=== PATIENT | female | born 1950 | race Caucasian/White ===

== ENCOUNTER 2017-07-30 07:02 | Inpatient (IN) | payer OTHER, MEDICAID ==
[~2017-07-30] VITALS: Ht 157.5 cm; Wt 75.0 kg
[2017-07-30] MEDS ORDERED: SERT-138 PO (07:31)
[2017-07-30] MEDS ORDERED: ATOR40TA75 PO (07:31)
[2017-07-30] MEDS ORDERED: EZET10TA PO (07:31)
[2017-07-30] MEDS ORDERED: RANI150T PO (07:31)
[2017-07-30] MEDS ORDERED: GABA-282 PO (07:31)
[2017-07-30] MEDS ORDERED: BISO5TAB5 PO (07:31)
[2017-07-30] MEDS ORDERED: ZYLO300T4 PO (07:31)
[2017-07-30] MEDS ORDERED: LISI-542 PO (07:31)
[2017-07-30] MEDS ORDERED: FURO20TA2 PO (07:31)
[2017-07-30] MEDS: NICOTINE 21MG/24HR 1 EA TRANSDERMAL TD SCH (09:00)
[2017-07-30] MEDS ORDERED: MAALOX 30 ML SUSP *UDC PO PRN (17:00)
[2017-07-30] MEDS ORDERED: hydrOXYzine 25 MG TAB PO PRN (17:00)
[2017-07-30] MEDS ORDERED: QUEtiapine FUMARATE 50 MG TAB PO PRN (17:00)
[2017-07-30] MEDS ORDERED: MOM 30ML SUSPENSION UDC PO PRN (17:00)
[2017-07-30] MEDS ORDERED: ACETAMINOPHEN TAB 650MG DOSE (2X325MG) PO PRN (17:00)
[2017-07-30] MEDS: ATORVASTATIN 20 MG TAB PO SCH (22:01)
[2017-07-30] MEDS: GABAPENTIN 300 MG CAP PO SCH (22:02)
[2017-07-30] MEDS: BISOPROLOL FUMARATE 5 MG TAB PO SCH (22:03)
[2017-07-30] MEDS: FAMOTIDINE 20 MG TAB PO SCH (22:04)
[2017-07-31 06:44] VITALS: BP 127/81
[2017-07-31] MEDS: NICOTINE 21MG/24HR 1 EA TRANSDERMAL TD SCH (09:00)
[2017-07-31] MEDS: FUROSEMIDE 20 MG TAB PO SCH (10:14)
[2017-07-31] MEDS: GABAPENTIN 300 MG CAP PO SCH ×2 (10:14→21:16)
[2017-07-31] MEDS: LISINOPRIL 5 MG TAB PO SCH (10:14)
[2017-07-31] MEDS: SERTRALINE 100 MG TAB PO SCH (10:14)
[2017-07-31] MEDS: EZETIMIBE 10 MG TAB (ZETIA) PO SCH (10:14)
[2017-07-31] MEDS: ALLOPURINOL 300 MG TAB PO SCH (10:15)
[2017-07-31] MEDS: FAMOTIDINE 20 MG TAB PO SCH ×2 (10:15→21:13)
[2017-07-31] MEDS: BISOPROLOL FUMARATE 5 MG TAB PO SCH ×2 (10:15→21:00)
[2017-07-31] MEDS ORDERED: ALBUTEROL 90 MCG/ACT 8GM HFA INHALER INH PRN (10:30)
--- NOTE | 2017-07-31 10:30 | HPEPDOC ---
[facility] Medical History & Physical Date of Admission Jul 30, 2017 History and Physical PCP: Dr Juan Jose Parikh ATTENDING: Dr. Mundo Jade HPI: 66yoF transferred from [facility] after apparently taking a handful of pills, then spitting them out, admitted to [facility] for unspecified depressive disorder, being medically examined today. No acute medical complaints today. Denies any fevers, chills, weakness, fatigue, RUSSELL, CP, SOB, cough, palpitations, abdominal pain, N/V/D or changes in bowel or bladder habits. PMHx: COPD Hypertension ELIZABETH. CPAP. Hyperlipidemia Degenerative disc disease/osteoarthritis Chronic neck pain/chronic low back pain/chronic pain Depression Anxiety Psoriasis Poor dentition Gout GERD PSHX: Cholecystectomy Tubal ligation Right toe amputation SOCHX: Resides in: [facility] Marital Status: Kids: One son Employment: Retired Tobacco use: One half pack per day ETOH: Denies Illicit Drugs: Denies IV Drug Use: Denies Tattoos done unprofessionally: Denies FAMHX: Mother: , ovarian cancer Father: , [place] Siblings: One brother with Lewy body dementia, one sister Alive, well. Children: One son Alive, history of heart disease. One child at . ROS: As noted in HPI, otherwise 11pt ROS of systems reviewed and remarkable only for postmenopausal. PE: GEN: 66yoF, appears stated age. Well-nourished, well developed. No acute distress. Alert and oriented x 3. Pleasant, interactive. HEENT: Normocephalic, atraumatic. Pupils are equal, round, and reactive to light. Extraocular movements are intact. No nystagmus appreciated. Sclera are nonicteric. Conjunctiva without injection. Nose midline. Nasal turbinates without bogginess. EACs both patent BL. TMs both visualized and grigsby with good cone of light, no bulging or erythema. No facial asymmetry. Moist mucous membranes. Dentition fair. Pharynx pink and moist, no cobblestoning. Neck supple , trachea midline. No lymphadenopathy or thyromegaly appreciated. CHEST: Regular rate and rhythm, +S1, +S2 LUNGS: Clear to auscultation bilaterally. No wheezes, rales, or rhonchi. Breathing appears symmetric and easy. Patient is speaking in full sentences. No accessory muscle use. ABD: Round, soft, non-tender, non-distended. +Bowel sounds throughout. No rebound or guarding. No costovertebral angle tenderness. EXT: Pulses 2+ bilaterally dorsalis pedis and radial. No lower extremity edema appreciated. SKIN: [place], dry, warm. Capillary refill <2sec. No rashes. NEURO: Alert and oriented x 3. Cranial nerves III-XII are intact. No focal deficits appreciated. EKG: pending. Labs [facility] WBC 4.4 Hgb 11.7 HCT 37.3 Plt 114 Na 141 K 4.5 Cl 106 CO2 28 BUN 24 SCr 1.40 Gluc 115 Ca 9.7 AST 27 ALT 19 AP 122 Alb 4.4 TSH 0.99 Toxicology unremarkable. A&P: 66yoF transferred from [facility] admitted to [facility] for unspecified depressive disorder 1. Psych. Plan per Psychiatry. Obtain baseline EKG to assure the safety of psychiatric medications as they can prolong the QT interval. 2. Nicotine dependence. Patch available. 3. Poor dentition. No acute issues. Encourage oral care. Chlorhexidine 3 times a day. Arrange dental provider at discharge 4. Follow up with PCP on discharge. 5. Hypertension. Continue Lasix 20 mg daily, lisinopril 5 mg by mouth daily with hold parameters, Zebeta 5 mg by mouth twice a day. 6. COPD. Continue albuterol as needed. 7. ELIZABETH. Continue CPAP with home settings. 8. Hyperlipidemia. Continue atorvastatin 40 mg by mouth daily. Continue Zetia 10 mg by mouth daily. 9. Chronic neck pain/low back pain/chronic pain. Continue gabapentin 600 mg by mouth twice a day. Tylenol 650 mg by mouth every 6 hours as needed. Consider pain management if needed. 10. Gout. Continue allopurinol 300 mg by mouth daily. 11. GERD. Continue ranitidine 150 mg by mouth twice a day. 12. Staff member Gladys VINCENT present throughout exam. Vital Signs Vital Signs Date Time Temp Pulse Resp B/P (MAP) Pulse Ox O2 Delivery O2 Flow Rate FiO2 07/31/17 10:15 78 07/31/17 10:14 143/87 07/31/17 06:44 97.5 18 07/30/17 14:34 97 Room Air Home Medications Scheduled Allopurinol (Zyloprim) 300 Mg Tab, 300 MG PO DAILY for goute Atorvastatin Calcium (Atorvastatin Calcium) 40 Mg Tab, 40 MG PO DAILY for .. Bisoprolol Fumarate (Bisoprolol Fumarate) 5 Mg Tab, 5 MG PO BID for .. Ezetimibe (Ezetimibe) 10 Mg Tab, 10 MG PO DAILY for .. Furosemide (Furosemide) 20 Mg Tab, 20 MG PO DAILY for .. Gabapentin (Gabapentin) 300 Mg Cap, 600 MG PO BID for .. Lisinopril (Lisinopril) 5 Mg Tab, 5 MG PO DAILY for .. Ranitidine HCl (Ranitidine HCl) 150 Mg Tab, 150 MG PO BID for .. Sertraline HCl (Sertraline HCl) 100 Mg Tab, 100 MG PO DAILY for .. Allergies Coded Allergies: Codeine (Verified Allergy, Unknown, 07/30/17) Meperidine (Verified Allergy, Unknown, 07/30/17) Marlen Pat Jul 31, 2017 10:30
[2017-07-31] MEDS: CHLORHEXIDINE ORAL RINSE 0.12%/15ML 120ML BOTTLE SSP SCH ×3 (12:09→21:17)
--- NOTE | 2017-07-31 17:05 | ECGEPIP ---
Stationary ECG Study [facility] Test Date: 2017-07-31 Pat Name: JEROMY GRAJEDA Department: Room: [place] [address] Gender: F Taker Away: BETO : 1950 Requested By: Marlen Pat Order Number: [id number] Reading MD: Mundo Jade Measurements Intervals [place] Rate: 64 P: 66 AL: 168 QRS: 41 QRSD: 97 T: 55 QT: 392 QTc: 407 Interpretive Statements SINUS RHYTHM Comparison tracing not on file Electronically Signed On 07-31-2017 17:05:47 EDT by Mundo Jade
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
[2017-07-31 18:00] VITALS: BP 98/56
[2017-07-31] MEDS: PALIPERIDONE 3 MG ER TAB (INVEGA) PO SCH (21:14)
[2017-07-31] MEDS: ATORVASTATIN 20 MG TAB PO SCH (21:16)
[2017-08-01 06:43] VITALS: BP 129/69
[2017-08-01] MEDS: NICOTINE 21MG/24HR 1 EA TRANSDERMAL TD SCH (09:00)
[2017-08-01] MEDS: ALLOPURINOL 300 MG TAB PO SCH (09:34)
[2017-08-01] MEDS: LISINOPRIL 5 MG TAB PO SCH (09:34)
[2017-08-01] MEDS: FAMOTIDINE 20 MG TAB PO SCH ×2 (09:34→21:31)
[2017-08-01] MEDS: EZETIMIBE 10 MG TAB (ZETIA) PO SCH (09:34)
[2017-08-01] MEDS: BISOPROLOL FUMARATE 5 MG TAB PO SCH ×2 (09:34→21:00)
[2017-08-01] MEDS: ASPIRIN 81 MG ENTERIC TAB PO SCH (09:35)
[2017-08-01] MEDS: GABAPENTIN 300 MG CAP PO SCH ×2 (09:35→21:32)
[2017-08-01] MEDS: FUROSEMIDE 20 MG TAB PO SCH (09:35)
[2017-08-01] MEDS: CHLORHEXIDINE ORAL RINSE 0.12%/15ML 120ML BOTTLE SSP SCH ×3 (09:35→21:32)
[2017-08-01] MEDS: SERTRALINE 100 MG TAB PO SCH (09:35)
[2017-08-01 18:00] VITALS: BP 106/59
[2017-08-01] MEDS: PALIPERIDONE 3 MG ER TAB (INVEGA) PO SCH (21:31)
[2017-08-01] MEDS: ATORVASTATIN 20 MG TAB PO SCH (21:32)
[2017-08-02 07:22] VITALS: BP 128/68
[2017-08-02] MEDS: NICOTINE 21MG/24HR 1 EA TRANSDERMAL TD SCH (09:00)
[2017-08-02] MEDS: EZETIMIBE 10 MG TAB (ZETIA) PO SCH (09:09)
[2017-08-02] MEDS: ALLOPURINOL 300 MG TAB PO SCH (09:09)
[2017-08-02] MEDS: ASPIRIN 81 MG ENTERIC TAB PO SCH (09:09)
[2017-08-02] MEDS: SERTRALINE 100 MG TAB PO SCH (09:09)
[2017-08-02] MEDS: CHLORHEXIDINE ORAL RINSE 0.12%/15ML 120ML BOTTLE SSP SCH ×3 (09:09→21:59)
[2017-08-02] MEDS: FAMOTIDINE 20 MG TAB PO SCH ×2 (09:09→21:58)
[2017-08-02] MEDS: GABAPENTIN 300 MG CAP PO SCH ×2 (09:09→21:57)
[2017-08-02] MEDS: LISINOPRIL 5 MG TAB PO SCH (09:10)
[2017-08-02] MEDS: FUROSEMIDE 20 MG TAB PO SCH (09:10)
[2017-08-02] MEDS: BISOPROLOL FUMARATE 5 MG TAB PO SCH ×2 (09:10→21:58)
[2017-08-02 18:46] VITALS: BP 98/56
[2017-08-02] MEDS: ATORVASTATIN 20 MG TAB PO SCH (21:56)
[2017-08-02] MEDS: PALIPERIDONE 3 MG ER TAB (INVEGA) PO SCH (21:56)
[2017-08-03 07:19] VITALS: BP 135/92
[2017-08-03] MEDS: NICOTINE 21MG/24HR 1 EA TRANSDERMAL TD SCH (09:00)
[2017-08-03 09:05] VITALS: BP 132/67
[2017-08-03] MEDS: BISOPROLOL FUMARATE 5 MG TAB PO SCH (09:05)
[2017-08-03] MEDS: FUROSEMIDE 20 MG TAB PO SCH (09:05)
[2017-08-03] MEDS: SERTRALINE 100 MG TAB PO SCH (09:05)
[2017-08-03] MEDS: GABAPENTIN 300 MG CAP PO SCH (09:05)
[2017-08-03] MEDS: FAMOTIDINE 20 MG TAB PO SCH (09:05)
[2017-08-03] MEDS: ASPIRIN 81 MG ENTERIC TAB PO SCH (09:05)
[2017-08-03] MEDS: LISINOPRIL 5 MG TAB PO SCH (09:06)
[2017-08-03] MEDS: ALLOPURINOL 300 MG TAB PO SCH (09:06)
[2017-08-03] MEDS: CHLORHEXIDINE ORAL RINSE 0.12%/15ML 120ML BOTTLE SSP SCH ×2 (09:07→16:42)
[2017-08-03] MEDS: EZETIMIBE 10 MG TAB (ZETIA) PO SCH (09:08)
--- NOTE | 2017-08-03 10:00 | IPN ---
DATE: 07/30/2017 The patient today states she is doing okay. She is denying any suicidal ideations prior to DICTATION ENDED.........................
--- NOTE | 2017-08-03 10:27 | MHIPN ---
DATE: 08/01/2017 The patient states that she is not having any further suicidal ideation. She states that she is feeling depressed. However, she found out that her brother has dementia . She says she and her brother were "inseparable." At times, she feels hopeless and helpless. MENTAL STATUS EXAMINATION: The patient is alert and oriented times three. Eye contact is fair. Psychomotor activity is decreased. There is no formal thought disorder noted. She is obese, spontaneous. Eye contact is good. She is not suicidal or homicidal. Concentration is fair. Insight and judgment is fair. DIAGNOSES: Unspecified depression disorder. Rule out major depressive disorder with psychotic symptoms. TREATMENT PLAN: At this point, the patient will continue to be evaluated for continued resolution of suicidal ideation. The patient will continue to be monitored for ongoing depression and resolution of that, and we will titrate medications as indicated. edited: 08/04/2017 1153 tkf JEAN-PAUL
[2017-08-03] MEDS ORDERED: NICO21PAT TD (11:35)
[2017-08-03] MEDS ORDERED: GABA-282 PO (11:35)
[2017-08-03] MEDS ORDERED: PALI1TAB2 PO (11:35)
[2017-08-03] MEDS ORDERED: QUET5TAB PO (11:35)
[2017-08-03] MEDS ORDERED: SERT-138 PO (11:35)
[2017-08-03] MEDS ORDERED: HYDR-3363 PO (11:35)
--- NOTE | 2017-08-03 22:31 | MHDSPDOC ---
[facility] Discharge Summary Discharge Summary DATE OF ADMISSION: Jul 30, 2017 at 12:58 DATE OF DISCHARGE: Aug 03, 2017 at 16:50 DISCHARGE DIAGNOSES: 1. Major depressive disorder, severe, recurrent, with psychotic symptoms REASON FOR ADMISSION: : "They sent me from [place] because they thought I needed to calm down, I took some pills you know" HISTORY OF PRESENT ILLNESS: As per ED history: "Patient arrived a few hours ago after spending the night in the ED at [facility]. She states that there was an incident that precipitated the gesture, although will not elaborate. She confirmed that it was something to do with another individual, but otherwise provided no details because she didn't want to involve hat person. She admits that she took a handful of her own meds & put the pills in her mouth, however only swallowed a couple. She states that her boyfriend was home at the time & contacted emergency services. Patient denies having any relevant hx & says that she has never seen a mental health professional before. Among her meds is Sertraline however, which is prescribed by her PCP. She denies having any current thoughts of suicide, although she is clearly impulsive. She is also guarded, appearing to have poor insight & judgment. CONSULTANTS INVOLVED: None TREATMENT AND PROGRESS ON THE UNIT : Patient had a good response to medications while she was at the inpatient mental health unit, she was pleasant and cooperative, attended groups and always follow the rules. Never had problems with staff or with peers. Patient seems to have been depressed for several years , since her one and only brother became ill and she worries continuously about him. She stated she has never been the same since her father when she was 19 years old because she was extremely attached to him, she use to help him on all the outdoors activity and work he used to do. She said she loved her mother but she was never too attached to her and she was to her father. She reports that she has been hearing the voice of her father since he and she doesn't consider that as an abnormal aspect of her thought content, she is used to it and she thinks is normal. She also has been hearing acuity on in her head that her brother, when he was healthy used to play. HOSPITAL COURSE: As above DISCHARGE ASSESSMENT: Patient was stable to be discharged, she was discharged to her boyfriend of 26 years, who lives with her and is very supportive. She was not suicidal, not homicidal and not psychotic. MENTAL STATUS EXAMINATION ON DISCHARGE: Patient is a 66-year old female, who is alert, cooperative, pleasant, dressed in hospital clothes, with good eye contact. Speech is coherent and goal-directed. Language skills are good. Thought processes including: Intact. Thought content: Focused on on her discharge. Abstract reasoning, and computation: Fair Description of associations: Good. Description of abnormal or psychotic thoughts: Denies suicidal ideation, homicidal ideation, auditory and visual hallucinations and thought delusions. Judgment: Fair. Insight: Fair. Orientation to oriented 3. Recent and remote memory: Intact. Attention span and concentration: Good. Language: Normal. Fund of knowledge: Fair. Mood: Euthymic. Affect: Euthymic, congruent with mood. MEDICATIONS ON DISCHARGE: Allopurinol (Zyloprim) 300 Mg Tab, 300 MG PO DAILY for goute, (Reported) Atorvastatin Calcium (Atorvastatin Calcium) 40 Mg Tab, 40 MG PO DAILY for .., ( Reported) Bisoprolol Fumarate (Bisoprolol Fumarate) 5 Mg Tab, 5 MG PO BID for .., ( Reported) Ezetimibe (Ezetimibe) 10 Mg Tab, 10 MG PO DAILY for .., (Reported) Furosemide (Furosemide) 20 Mg Tab, 20 MG PO DAILY for .., (Reported) Gabapentin (Gabapentin) 300 Mg Cap, 600 MG PO BID for .., (Reported) Gabapentin (Gabapentin) 300 Mg Cap, 600 MG PO BID for NEUROPATHY, #14 Lisinopril (Lisinopril) 5 Mg Tab, 5 MG PO DAILY for .., (Reported) Nicotine (Nicotine Transdermal Syst) 21 Mg/24 Hr Dis, 1 PATCH TD DAILY for SMOKING CESSATION, #10 Paliperidone (Paliperidone ER) 3 Mg Tab, 3 MG PO QHS for psychosis, #10 Ranitidine HCl (Ranitidine HCl) 150 Mg Tab, 150 MG PO BID for .., (Reported) Sertraline HCl (Sertraline HCl) 100 Mg Tab, 100 MG PO DAILY for depression, #10 Scheduled PRN Hydroxyzine HCl (Hydroxyzine HCl) 25 Mg Tab, 75 MG PO Q6HP PRN for ANXIETY/ AGGITATION, #14 Quetiapine Fumerate (Quetiapine Fumarate) 50 Mg Tab, 50 MG PO QHSP PRN for INSOMNIA, #10 PLAN/FOLLOWUP ARRANGEMENTS: Patient refused outpatient follow-up appointments The amount of time spent in the coordination of care for this patient was approximately 30 minutes. Vital Signs/I&Os Vital Signs Date Time Temp Pulse Resp B/P (MAP) Pulse Ox O2 Delivery O2 Flow Rate FiO2 08/03/17 09:05 63 132/67 08/03/17 07:19 98.5 18 Room Air 07/30/17 14:34 97 Medications Scheduled Allopurinol (Zyloprim) 300 Mg Tab, 300 MG PO DAILY for goute, (Reported) Atorvastatin Calcium (Atorvastatin Calcium) 40 Mg Tab, 40 MG PO DAILY for .., ( Reported) Bisoprolol Fumarate (Bisoprolol Fumarate) 5 Mg Tab, 5 MG PO BID for .., ( Reported) Ezetimibe (Ezetimibe) 10 Mg Tab, 10 MG PO DAILY for .., (Reported) Furosemide (Furosemide) 20 Mg Tab, 20 MG PO DAILY for .., (Reported) Gabapentin (Gabapentin) 300 Mg Cap, 600 MG PO BID for .., (Reported) Gabapentin (Gabapentin) 300 Mg Cap, 600 MG PO BID for NEUROPATHY, #14 Lisinopril (Lisinopril) 5 Mg Tab, 5 MG PO DAILY for .., (Reported) Nicotine (Nicotine Transdermal Syst) 21 Mg/24 Hr Dis, 1 PATCH TD DAILY for SMOKING CESSATION, #10 Paliperidone (Paliperidone ER) 3 Mg Tab, 3 MG PO QHS for psychosis, #10 Ranitidine HCl (Ranitidine HCl) 150 Mg Tab, 150 MG PO BID for .., (Reported) Sertraline HCl (Sertraline HCl) 100 Mg Tab, 100 MG PO DAILY for depression, #10 Scheduled PRN Hydroxyzine HCl (Hydroxyzine HCl) 25 Mg Tab, 75 MG PO Q6HP PRN for ANXIETY/ AGGITATION, #14 Quetiapine Fumerate (Quetiapine Fumarate) 50 Mg Tab, 50 MG PO QHSP PRN for INSOMNIA, #10 Allergies Coded Allergies: Codeine (Verified Allergy, Unknown, 07/30/17) Meperidine (Verified Allergy, Unknown, 07/30/17) BELA MCLEAN MD Aug 03, 2017 22:31
--- NOTE | 2017-08-11 16:47 | IPN ---
DATE: 08/02/2017 The patient today tells me initially that she is good, then she admits that she is still feeling depressed. She says that she is "better," however, not as depressed as before. She says she slept good. She is denying suicidal ideations. MENTAL STATUS EXAM: This patient is alert and oriented times three. She is cooperative. Eye contact fair. Psychomotor activity is decreased. There is no formal thought disorder noted. She is verbally spontaneous. She is not suicidal or homicidal. She is not psychotic. She says her mood is better, affect is full range and appropriate. Insight and judgment is fair. DIAGNOSIS: Unspecified depressive disorder. Rule out major depressive disorder with psychotic symptoms. TREATMENT PLAN: At this point, we will continue to monitor the patient for continued resolution of suicidal ideation, and we will monitor for ongoing depression and resolution of that and will titrate the medications as indicated. JEAN-PAUL
== END 2017-08-03 16:50 | disposition home or self-care (01) | DRG 754 ==
LOC: M ED 07:02 → M ED INP 12:58 → M PSY 15:15
PROVIDERS: ADMIT Psychiatry & Neurology Psychiatry; ATTEND Psychiatry & Neurology Psychiatry
DX: F32.9 Major depressive disorder, single episode, unspecified (principal); J44.9 Chronic obstructive pulmonary disease, unspecified; I10 Essential (primary) hypertension; G47.33 Obstructive sleep apnea (adult) (pediatric); E78.5 Hyperlipidemia, unspecified; M54.2 Cervicalgia; M54.5 Low back pain; L40.9 Psoriasis, unspecified; F41.9 Anxiety disorder, unspecified; M10.9 Gout, unspecified; K21.9 Gastro-esophageal reflux disease without esophagitis; F17.210 Nicotine dependence, cigarettes, uncomplicated; Z79.899 Other long term (current) drug therapy; Z88.5 Allergy status to narcotic agent; Z88.8 Allergy status to other drugs, medicaments and biological substances